=== PATIENT | male | born 1950 | race Caucasian/White ===

== ENCOUNTER 2017-09-30 08:39 | Outpatient (CLI) | payer MEDICARE, OTHER ==
[2017-09-30] MEDS ORDERED: Gadobenate Dimeglumine 529 MG/1 ML (20ML VIAL) ONE (10:37)
--- NOTE | 2017-09-30 10:58 | RAD ---
LUMBAR SPINE SERIES THREE VIEWS: History: Post op. FINDINGS: There is slight scoliotic change, convex to the left. There is right unilateral pedicle screws placed at L4-5. Fairly marked disc narrowing at L3-4 and L5-S1. Mild disc narrowing at L4-5 and L2-3. Post op laminectomy changes extend from the lower half of L2 to L5. Pedicles appears intact. Moderate athe rosclerotic changes of the aorta are seen. IMPRESSION: Post op laminectomy change and right unilateral pedicle screw placement at L4-5. POS: [facility]
--- NOTE | 2017-09-30 12:55 | MRI ---
LUMBAR SPINE MRI WITH AND WITHOUT CONTRAST: 09/30/2017 HISTORY: Spondylolisthesis. Lumbar spine surgery two weeks ago. Pelvic pain. Incontinence. COMPARISON: None. TECHNIQUE: Multiplanar, multisequence MR imaging of the lumbar spine is provided with and without contrast. FINDINGS: A right-sided pedicle screw is present at the L4 and the L5 levels. The pedicle screw locations are not optimally assessed via MRI secondary to artifact. The L4 pedicle screw appears to traverse the p edicle, but the L5 pedicle screw appears medially directed, not definitely within the pedicle, probab ly medial to the pedicle, approaching the region of the right lateral recess. The sagittal STIR imaging demonstrates no focal area of osseous marrow edema. The urinary bladder is partially imaged on this examination and appears markedly distended. Assuming five lumbar type vertebral bodies, the conus medullaris terminates at the L1-L2 level. T12-L1: There is disk space narrowing, disk desiccation, bilateral facet hypertrophy, and mild disk bulge, with no significant central canal or neural foraminal stenosis. L1-L2: Mild bilateral facet hypertrophy. There is disk desiccation. No significant central canal o r neural foraminal stenosis. L2-L3: There is disk space narrowing, disk desiccation, and mild disk bulge. The patient is status post bilateral laminectomy. There is bilateral facet hypertrophy. Moderate right and mild left neur al foraminal stenosis suspected. No significant central canal stenosis. L3-L4: There is disk space narrowing, disk desiccation, and a disk osteophyte complex. Bilateral la minectomy changes are noted. No significant central canal stenosis. Bilateral facet hypertrophy pre sent with bilateral neural foraminal stenosis, moderate to severe, right greater than left. L4-L5: There is disk space narrowing, disk desiccation, and disk bulge. There is mild central canal stenosis. Bilateral laminectomy change present. Bilateral facet hypertrophy present. The neural f oramina are not well assessed secondary to artifact from pedicle screws. Moderate bilateral neural f oraminal stenosis suspected, right greater than left. L5-S1: There is disk space narrowing and disk desiccation with bilateral facet hypertrophy. Severe left and moderate right neural foraminal stenosis noted. There is increased T2 signal intensity seen throughout the posterior paraspinal musculature, from L2 through L5, consistent with nonspecific postoperative edema. There is a fluid collection posterior t o the thecal sac, at the L2-L3 level, measuring 3.7 x 2.5 x 4.7 cm. This nonspecific postoperative f luid collection may be sterile or infected, and this distinction cannot be made on the basis of imagi ng. The post contrast imaging does not demonstrate abnormal enhancement involving the nerve roots of the cauda equina. No abnormal enhancement is seen involving the imaged osseous structures. Retroperitoneal structures demonstrate bilateral incompletely assessed hydronephrosis and hydroureter , mild, left greater than right. Post contrast imaging demonstrates extensive enhancement of the posterior paraspinal musculature thro ughout the lumbar spine, primarily from L2 through L5, including the paraspinal musculature surroundi ng the above described nonspecific postoperative fluid collection. There is mild nonspecific diffuse edematous change within the pararenal and periureteral regions. IMPRESSION: 1. Multilevel postoperative change, as described above. The L5 pedicle screw on the right appears m edially deviated and likely traverses the lateral recess. CT examination may be beneficial for delia r evaluation. 2. Nonspecific postoperative fluid collection posterior to the thecal sac, at the L2-L3 level, which may be sterile or infected. There is extensive edematous change and enhancement within the musculat ure adjacent to this fluid collection, which could signify inflammatory/infectious change or simply r eactive edema secondary to recent surgery. 3. Markedly distended urinary bladder with bilateral hydronephrosis and hydroureter. Findings are s uspicious for possible urinary bladder outlet obstruction. All findings were called to Dr. Monroe on the afternoon of 09/30/2017. CODE CR POS: [facility]
== END 2017-09-30 08:40 | disposition home or self-care (01) ==
LOC: MRI 08:39
PROVIDERS: ATTEND Neurological Surgery
DX: M43.16 Spondylolisthesis, lumbar region (principal); Z98.890 Other specified postprocedural states
CPT/HCPCS: 72100; 72158; 82565; A9579

== ENCOUNTER 2017-09-30 13:27 | Outpatient (CLI) | payer MEDICARE, OTHER ==
--- NOTE | 2017-09-30 14:16 | ULT ---
VENUOS DOPPLER ULTRASOUND OF THE LEFT LOWER EXTREMITY: HISTORY: Left lower leg edema. Back surgery last month. TECHNIQUE: Sims scale ultrasound with color flow and spectral Doppler imaging of the deep venous system of the l eft lower extremity was performed. FINDINGS: There is good flow, compression, and augmentation noted in the left common femoral, femoral, deep fem oral, popliteal, posterior tibial, and greater saphenous veins. IMPRESSION: No evidence of deep vein thrombosis in the left lower extremity. POS: [facility]
== END 2017-09-30 13:28 | disposition home or self-care (01) ==
LOC: ULT 13:27
PROVIDERS: ATTEND Neurological Surgery
DX: I82.402 Acute embolism and thrombosis of unspecified deep veins of left lower extremity (principal)